=== PATIENT | female | born 1990 | race Caucasian/White ===

== ENCOUNTER 2017-08-05 14:34 | Emergency (ER) | payer OTHER ==
[2017-08-05] MEDS ORDERED: DIPH,PERTUS(ACELL)TETVAC-LF 0.5 ML VIAL IM ONE (14:49)
[2017-08-05 14:50] VITALS: BP 121/81; PULSE 88; RESP 18; TEMP 97.8
--- NOTE | 2017-08-05 15:10 | ED ---
General Adult HPI - General Chief complaint: Wound/Laceration Stated complaint: Laceration-[facility] Time Seen by Provider: 08/05/17 14:48 Source: patient, RN notes reviewed Mode of arrival: ambulatory Limitations: no limitations - History of Present Illness Initial comments: Patient was 7-year-old female presenting to the emergency room today with a chief complaint of a laceration to right thenar eminence. Patient states she was at work handling a metal part and it causes laceration. She states her tetanus is not up-to-date. She states that that occurred at 4 AM in the morning. Patient denies any other complaints or symptoms. Patient denies any recent fever, chills, shortness of breath, chest pain, back pain, abdominal pain , nausea or vomiting, numbness or tingling, headaches or visual changes, or any other complaints. - Related Data Allergies Allergy/AdvReac Type Severity Reaction Status Date / Time No Known Allergies Allergy Verified 08/05/17 14:47 Review of Systems ROS Statement: Those systems with pertinent positive or pertinent negative responses have been documented in the HPI. ROS Other: All systems not noted in ROS Statement are negative. Past Medical History Additional Past Medical History / Comment(s): CP History of Any Multi-Drug Resistant Organisms: None Reported Past Surgical History: Orthopedic Surgery Past Psychological History: No Psychological Hx Reported Smoking Status: Never smoker Past Alcohol Use History: None Reported Past Drug Use History: None Reported General Exam - General Exam Comments Initial Comments: General: The patient is awake and alert, in no distress, and does not appear acutely ill. Neck: The neck is supple, there is no tenderness or JVD. Musculoskeletal: Patient does have a 1 cm laceration to the right hand at the thenar eminence. No active bleeding. No deep tissue involvement. Patient shows good range of motion. Sensations are intact. Radial pulse 2+. Neurological: A&O x 3. CN II-XII intact, There are no obvious motor or sensory deficits. Coordination appears grossly intact. Speech is normal. Skin: 1 cm linear laceration to the right hand Psychiatric: Normal mood and affect. Limitations: no limitations Course Vital Signs 08/05/17 14:47 Temperature 97.8 F Pulse Rate 88 Respiratory 18 Rate Blood Pressure 121/81 O2 Sat by Pulse 100 Oximetry Medical Decision Making - Medical Decision Making Patient's wound has been open for 11 hours. Steri-Strip used to close the wound. Advised watch for signs of infection. Will have tetanus updated. Disposition Clinical Impression: Laceration Disposition: HOME SELF-CARE Condition: Good Instructions: Laceration (ED) Additional Instructions: Please watch for signs of infection which may include increased pain, swelling, redness, fever or chills. Please return to emergency room for any other concerns. Is patient prescribed a controlled substance at d/c from ED?: No Referrals: Sandra Boone MD [Primary Care Provider] - 1-2 days Time of Disposition: 15:09
== END 2017-08-05 15:46 | disposition home or self-care (01) ==
LOC: EC 14:34
DX: S61.011A Laceration without foreign body of right thumb without damage to nail, initial encounter (principal); Z23 Encounter for immunization; W45.8XXA Other foreign body or object entering through skin, initial encounter; Y92.69 Other specified industrial and construction area as the place of occurrence of the external cause; Y99.0 Civilian activity done for income or pay
CPT/HCPCS: 90471; 90715; 99282